=== PATIENT | male | born 1975 | race Caucasian/White ===

== ENCOUNTER 2017-08-25 09:08 | Inpatient (IN) | payer OTHER ==
[2017-08-25] MEDS: SOD CHLORIDE 0.9% 1,000 ML IV ×2 (07:00→17:52)
[~2017-08-25 09:08] MED LIST: LIDOCAINE 2% (SDV) 5 ML INJ
[2017-08-25] MEDS ORDERED: FENTAnyl 50 MCG/ML VIAL (12:20)
[2017-08-25] MEDS ORDERED: POLYMYXIN/BACITRACIN 1L IRRIG (12:28)
[2017-08-25] MEDS ORDERED: METOCLOPRAMIDE 10 MG INJ IV (12:30)
[2017-08-25] MEDS ORDERED: MIDAZOLAM 1 MG/ML 2 ML INJ IV (12:30)
[2017-08-25] MEDS ORDERED: LABETALOL HCL 20MG INJ IV (12:30)
[2017-08-25] MEDS ORDERED: DIPHENHYDRAMINE 50 MG INJ IV (12:30)
[2017-08-25] MEDS ORDERED: HYDROmorphONE (0.2 MG/ML) 10ML SYG IV ×2 (12:30)
[2017-08-25] MEDS ORDERED: FENTAnyl 50 MCG/ML VIAL IV ×2 (12:30)
[2017-08-25] MEDS ORDERED: ONDANSETRON 4 MG INJ IV (12:30)
[2017-08-25] MEDS ORDERED: EPHEDrine SULFATE 50 MG/5 ML SYG IV (12:30)
[2017-08-25] MEDS ORDERED: OXYCODONE/ACETAMINOPHEN (5/325) TAB PO ×2 (12:30)
[2017-08-25] MEDS ORDERED: ALBUTEROL 0.083% (NEB) 2.5 MG/3 ML AMP HHN (12:30)
[2017-08-25] MEDS ORDERED: MIDAZOLAM 1 MG/ML 2 ML INJ (12:35)
[2017-08-25] MEDS: CEFAZOLIN 2 GM/50 ML (PMX) 50 ML IVPB ×3 (12:40→21:48)
[2017-08-25 12:44] LABS: ADD MAN DIFF? NO
[2017-08-25] MEDS ORDERED: ROCURONIUM 50 MG INJ ×2 (12:46)
[2017-08-25] MEDS ORDERED: PROPOFOL 20 ML (12:46)
[2017-08-25] MEDS ORDERED: CEFAZOLIN 1 GM INJ (12:46)
[2017-08-25 12:47] LABS: BASOPHIL # 0.1 10^3/ul (0.0-0.1); BASOPHILS % 0.8 % (0.0-2.0); EOSINOPHILS # 0.5 10^3/ul (0.0-0.5); EOSINOPHILS % 7.5 % (0.0-7.0); HEMATOCRIT 46.8 % (42.0-52.0); LYMPHOCYTES # 2.4 10^3/ul (0.8-2.9); LYMPHOCYTES % 34.1 % (15.0-51.0); MEAN CORPUSCULAR HEMOGLOBIN 30.3 pg (29.0-33.0); MEAN CORPUSCULAR HGB CONC 34.2 g/dl (32.0-37.0); MEAN CORPUSCULAR VOLUME 88.6 fl (82.0-101.0); MEAN PLATELET VOLUME 10.9 fl (7.4-10.4); MONOCYTE # 0.5 10^3/ul (0.3-0.9); MONOCYTES % 6.8 % (0.0-11.0); NEUTROPHIL # 3.5 10^3/ul (1.6-7.5); NEUTROPHILS % 49.8 % (39.0-77.0); PLATELET COUNT 258 10^3/UL (140-415); RED BLOOD COUNT 5.28 10^6/ul (4.70-6.10)
[2017-08-25 12:47] LABS: WHITE BLOOD COUNT 7.1 10^3/ul (4.8-10.8)
[2017-08-25] MEDS ORDERED: morphine 10 MG INJ (12:47)
[2017-08-25] MEDS ORDERED: ACETAMINOPHEN 1000MG/100ML IV 100 ML (12:47)
[2017-08-25 12:53] LABS: ALANINE AMINOTRANSFERASE 32 IU/L (13-69); ALBUMIN 4.2 g/dl (3.3-4.9); ALKALINE PHOSPHATASE 65 IU/L (42-121); ANION GAP 13 (8-16); ASPARTATE AMINO TRANSFERASE 24 IU/L (15-46); BILIRUBIN,INDIRECT 0.4 mg/dl (0-1.1); BILIRUBIN,TOTAL 0.4 mg/dl (0.2-1.3); CARBON DIOXIDE 28 mmol/L (21-31); CHLORIDE 107 mmol/L (97-110); GLUCOSE 94 mg/dl (70-220); TOTAL PROTEIN 7.2 g/dl (6.1-8.1)
[2017-08-25 13:00] LABS: BLOOD UREA NITROGEN 17 mg/dl (7-20); CALCIUM 9.1 mg/dl (8.4-10.2); CREATININE 0.99 mg/dl (0.61-1.24); POTASSIUM 4.3 mmol/L (3.5-5.1); SODIUM 144 mmol/L (135-144)
[2017-08-25] MEDS: BUPIVACAINE 0.25% (MPF) 30 ML INJ (13:08)
[2017-08-25 13:09] LABS: INR 0.99; PROTIME 13.2 Sec (11.9-14.9)
[2017-08-25 13:10] LABS: PARTIAL THROMBOPLASTIN TIME 31.4 Sec (25.0-35.0)
[2017-08-25] MEDS ORDERED: NEOSTIGMINE 3 MG/3 ML SYRINGE (14:08)
[2017-08-25] MEDS ORDERED: GLYCOPYRROLATE 0.4 MG INJ (14:08)
[2017-08-25] MEDS: HYDROmorphONE (0.2 MG/ML) 10ML SYG IV ×3 (14:21→14:44)
[2017-08-25] MEDS: FENTAnyl 50 MCG/ML VIAL IV ×3 (14:21→14:55)
[2017-08-25] MEDS: KETOROLAC 30 MG INJ IV (14:22)
[2017-08-25] MEDS: morphine 2 MG INJ IV ×3 (14:36→22:19)
[2017-08-25] MEDS: MEPERIDINE 25 MG INJ IV (14:54)
[2017-08-25] MEDS: hydrALAzine 20 MG INJ IV (15:02)
[2017-08-25] MEDS ORDERED: CEPASTAT LOZENGE MT (18:00)
[2017-08-25] MEDS: KETOROLAC 15 MG INJ IV (20:58)
[2017-08-26] MEDS: morphine 2 MG INJ IV ×4 (01:13→12:21)
[2017-08-26] MEDS: SOD CHLORIDE 0.9% 1,000 ML IV ×3 (03:54→15:59)
[2017-08-26] MEDS: CEFAZOLIN 2 GM/50 ML (PMX) 50 ML IVPB ×2 (04:55→13:50)
[2017-08-26 05:49] LABS: ADD MAN DIFF? NO
[2017-08-26 05:56] LABS: WHITE BLOOD COUNT 11.2 10^3/ul (4.8-10.8)
[2017-08-26 05:56] LABS: BASOPHIL # 0.1 10^3/ul (0.0-0.1); BASOPHILS % 0.4 % (0.0-2.0); EOSINOPHILS # 0.1 10^3/ul (0.0-0.5); EOSINOPHILS % 0.9 % (0.0-7.0); HEMATOCRIT 40.7 % (42.0-52.0); HEMOGLOBIN 13.8 g/dl (14.0-18.0); LYMPHOCYTES # 1.7 10^3/ul (0.8-2.9); LYMPHOCYTES % 14.9 % (15.0-51.0); MEAN CORPUSCULAR HEMOGLOBIN 30.5 pg (29.0-33.0); MEAN CORPUSCULAR HGB CONC 33.9 g/dl (32.0-37.0); MEAN CORPUSCULAR VOLUME 89.8 fl (82.0-101.0); MEAN PLATELET VOLUME 10.7 fl (7.4-10.4); MONOCYTES % 9.1 % (0.0-11.0); NEUTROPHIL # 8.3 10^3/ul (1.6-7.5); NEUTROPHILS % 74.3 % (39.0-77.0); PLATELET COUNT 234 10^3/UL (140-415); RED BLOOD COUNT 4.53 10^6/ul (4.70-6.10); RED CELL DISTRIBUTION WIDTH 13.3 % (11.5-14.5)
[2017-08-26 06:19] LABS: ALANINE AMINOTRANSFERASE 30 IU/L (13-69); ALBUMIN 3.8 g/dl (3.3-4.9); ALBUMIN/GLOBULIN RATIO 1.35; ALKALINE PHOSPHATASE 51 IU/L (42-121); ANION GAP 13 (8-16); ASPARTATE AMINO TRANSFERASE 26 IU/L (15-46); BILIRUBIN,INDIRECT 0.6 mg/dl (0-1.1); BILIRUBIN,TOTAL 0.6 mg/dl (0.2-1.3); BLOOD UREA NITROGEN 18 mg/dl (7-20); CALCIUM 8.3 mg/dl (8.4-10.2); CARBON DIOXIDE 28 mmol/L (21-31); CHLORIDE 104 mmol/L (97-110); CREATININE 0.95 mg/dl (0.61-1.24); GLUCOSE 94 mg/dl (70-220); POTASSIUM 3.9 mmol/L (3.5-5.1); SODIUM 141 mmol/L (135-144); TOTAL PROTEIN 6.6 g/dl (6.1-8.1)
[2017-08-26] MEDS: HYDROCODONE/APAP (5/325) TAB PO (13:28)
[2017-08-26] MEDS: HYDROmorphONE 0.5 MG/0.5 ML SYG IV ×3 (15:59→23:23)
[2017-08-27] MEDS: HYDROmorphONE 0.5 MG/0.5 ML SYG IV ×6 (02:13→14:47)
[2017-08-27] MEDS: SOD CHLORIDE 0.9% 1,000 ML IV ×4 (02:13→22:49)
[2017-08-27] MEDS: MAGNESIUM HYDROXIDE 30ML CUP PO (14:48)
[2017-08-27] MEDS ORDERED: HYDROCODONE/APAP (5/325) TAB PO (17:00)
[2017-08-27] MEDS: HYDROCODONE/APAP (5/325) TAB PO ×2 (17:18→21:23)
[2017-08-28] MEDS: HYDROCODONE/APAP (5/325) TAB PO ×2 (02:32→22:29)
[2017-08-28] MEDS: HYDROmorphONE 0.5 MG/0.5 ML SYG IV ×7 (05:49→19:43)
[2017-08-28 06:04] LABS: ADD MAN DIFF? NO
[2017-08-28 06:14] LABS: BASOPHIL # 0.1 10^3/ul (0.0-0.1); BASOPHILS % 0.5 % (0.0-2.0); EOSINOPHILS # 0.5 10^3/ul (0.0-0.5); EOSINOPHILS % 4.3 % (0.0-7.0); HEMATOCRIT 36.6 % (42.0-52.0); HEMOGLOBIN 12.6 g/dl (14.0-18.0); LYMPHOCYTES # 1.5 10^3/ul (0.8-2.9); LYMPHOCYTES % 13.9 % (15.0-51.0); MEAN CORPUSCULAR HEMOGLOBIN 30.7 pg (29.0-33.0); MEAN CORPUSCULAR HGB CONC 34.4 g/dl (32.0-37.0); MEAN CORPUSCULAR VOLUME 89.1 fl (82.0-101.0); MEAN PLATELET VOLUME 10.6 fl (7.4-10.4); MONOCYTE # 1.1 10^3/ul (0.3-0.9); MONOCYTES % 10.5 % (0.0-11.0); NEUTROPHIL # 7.6 10^3/ul (1.6-7.5); NEUTROPHILS % 70.2 % (39.0-77.0); PLATELET COUNT 211 10^3/UL (140-415); RED BLOOD COUNT 4.11 10^6/ul (4.70-6.10); RED CELL DISTRIBUTION WIDTH 12.8 % (11.5-14.5)
[2017-08-28 06:14] LABS: WHITE BLOOD COUNT 10.8 10^3/ul (4.8-10.8)
[2017-08-28] MEDS: MAGNESIUM HYDROXIDE 30ML CUP PO (08:50)
[2017-08-28] MEDS: SOD CHLORIDE 0.9% 1,000 ML IV ×2 (08:51→18:59)
[2017-08-28] MEDS: BISACODYL 10 MG SUPP PR (14:49)
[2017-08-29] MEDS: SOD CHLORIDE 0.9% 1,000 ML IV ×2 (04:59→08:05)
[2017-08-29] MEDS: HYDROCODONE/APAP (5/325) TAB PO ×2 (05:04→09:09)
[2017-08-29 05:57] LABS: ADD MAN DIFF? NO
[2017-08-29 06:04] LABS: BASOPHIL # 0.1 10^3/ul (0.0-0.1); BASOPHILS % 0.6 % (0.0-2.0); EOSINOPHILS # 0.6 10^3/ul (0.0-0.5); HEMATOCRIT 37.9 % (42.0-52.0); HEMOGLOBIN 12.7 g/dl (14.0-18.0); LYMPHOCYTES # 1.8 10^3/ul (0.8-2.9); LYMPHOCYTES % 21.1 % (15.0-51.0); MEAN CORPUSCULAR HGB CONC 33.5 g/dl (32.0-37.0); MEAN CORPUSCULAR VOLUME 89.6 fl (82.0-101.0); MEAN PLATELET VOLUME 10.7 fl (7.4-10.4); MONOCYTE # 0.8 10^3/ul (0.3-0.9); MONOCYTES % 9.3 % (0.0-11.0); NEUTROPHIL # 5.1 10^3/ul (1.6-7.5); PLATELET COUNT 243 10^3/UL (140-415); RED BLOOD COUNT 4.23 10^6/ul (4.70-6.10); RED CELL DISTRIBUTION WIDTH 12.6 % (11.5-14.5)
[2017-08-29 06:04] LABS: WHITE BLOOD COUNT 8.3 10^3/ul (4.8-10.8)
[2017-08-29 07:46] LABS: ANION GAP 13 (8-16); BLOOD UREA NITROGEN 9 mg/dl (7-20); CALCIUM 8.3 mg/dl (8.4-10.2); CARBON DIOXIDE 26 mmol/L (21-31); CHLORIDE 108 mmol/L (97-110); CREATININE 0.79 mg/dl (0.61-1.24); GLUCOSE 99 mg/dl (70-220); POTASSIUM 4.3 mmol/L (3.5-5.1); SODIUM 143 mmol/L (135-144)
[2017-08-29] MEDS: MAGNESIUM HYDROXIDE 30ML CUP PO (09:02)
== END 2017-08-29 14:00 | disposition home or self-care (01) | DRG 355 ==
LOC: REC 09:08 → MS2 15:50
PROC: 0WUF0JZ Supplement Abdominal Wall with Synthetic Substitute, Open Approach (ICD-10-PCS; principal; 2017-08-25 12:32)
PROC: 0KX Muscles, Transfer (ICD-10-PCS; 2017-08-25 12:32)
PROC: 0KX Muscles, Transfer (ICD-10-PCS; 2017-08-25 12:32)
DX: K43.0 Incisional hernia with obstruction, without gangrene (principal); F17.210 Nicotine dependence, cigarettes, uncomplicated; E66.9 Obesity, unspecified; Z68.38 Body mass index [BMI] 38.0-38.9, adult
CPT/HCPCS: 80048; 80053; 85025; 85610; 85730

== ENCOUNTER 2017-09-01 13:43 | Inpatient (IN) | payer OTHER ==
[2017-09-01] MEDS ORDERED: ONDANSETRON 4 MG INJ IV (15:00)
[2017-09-01] MEDS ORDERED: NACL 0.9% 3 ML SYG IV (15:00)
[2017-09-01] MEDS: HYDROmorphONE 0.5 MG/0.5 ML SYG IV ×2 (15:44→19:50)
[2017-09-01] MEDS: SOD CHLORIDE 0.9% 1,000 ML IV (15:44)
[2017-09-01] MEDS: AMPICILLIN/SULB 3 GM/NS (PMX) 100 ML IVPB (17:26)
[2017-09-02] MEDS: HYDROmorphONE 0.5 MG/0.5 ML SYG IV ×5 (00:33→19:49)
[2017-09-02] MEDS: AMPICILLIN/SULB 3 GM/NS (PMX) 100 ML IVPB ×4 (00:34→17:50)
[2017-09-02 05:26] LABS: ADD MAN DIFF? NO
[2017-09-02 05:36] LABS: WHITE BLOOD COUNT 7.7 10^3/ul (4.8-10.8)
[2017-09-02 05:36] LABS: BASOPHIL # 0.1 10^3/ul (0.0-0.1); EOSINOPHILS # 0.7 10^3/ul (0.0-0.5); EOSINOPHILS % 9.2 % (0.0-7.0); HEMATOCRIT 40.9 % (42.0-52.0); HEMOGLOBIN 13.9 g/dl (14.0-18.0); LYMPHOCYTES # 1.9 10^3/ul (0.8-2.9); LYMPHOCYTES % 25.2 % (15.0-51.0); MEAN CORPUSCULAR HEMOGLOBIN 30.2 pg (29.0-33.0); MEAN CORPUSCULAR VOLUME 88.9 fl (82.0-101.0); MEAN PLATELET VOLUME 9.7 fl (7.4-10.4); MONOCYTE # 0.5 10^3/ul (0.3-0.9); MONOCYTES % 7.1 % (0.0-11.0); NEUTROPHIL # 4.1 10^3/ul (1.6-7.5); NEUTROPHILS % 52.9 % (39.0-77.0); PLATELET COUNT 355 10^3/UL (140-415); RED CELL DISTRIBUTION WIDTH 12.8 % (11.5-14.5)
[2017-09-02 05:49] LABS: ALANINE AMINOTRANSFERASE 30 IU/L (13-69); ALBUMIN 3.5 g/dl (3.3-4.9); ALBUMIN/GLOBULIN RATIO 1.09; ALKALINE PHOSPHATASE 67 IU/L (42-121); ANION GAP 14 (8-16); ASPARTATE AMINO TRANSFERASE 19 IU/L (15-46); BILIRUBIN,INDIRECT 0.4 mg/dl (0-1.1); BILIRUBIN,TOTAL 0.4 mg/dl (0.2-1.3); BLOOD UREA NITROGEN 13 mg/dl (7-20); CALCIUM 8.7 mg/dl (8.4-10.2); CARBON DIOXIDE 30 mmol/L (21-31); CHLORIDE 104 mmol/L (97-110); GLUCOSE 97 mg/dl (70-220); POTASSIUM 4.4 mmol/L (3.5-5.1); SODIUM 144 mmol/L (135-144); TOTAL PROTEIN 6.7 g/dl (6.1-8.1)
[2017-09-02 06:01] LABS: FREE T4 (FREE THYROXINE) 1.29 ng/dl (0.64-1.79)
[2017-09-02 07:43] LABS: HEMOGLOBIN A1C 5.3 % (0-5.9)
[2017-09-02 07:58] LABS: PHOSPHORUS 4.1 mg/dl (2.5-4.9)
[2017-09-02 07:58] LABS: CHOL/HDL RATIO 6.8 RATIO; CHOLESTEROL 172 mg/dl (100-200); HDL CHOLESTEROL 25 mg/dl (27-67); LDL CHOLESTEROL,CALCULATED 124 mg/dl; MAGNESIUM 2.3 mg/dl (1.7-2.5); TRIGLYCERIDES 115 mg/dl (0-149)
[2017-09-03] MEDS: AMPICILLIN/SULB 3 GM/NS (PMX) 100 ML IVPB ×2 (00:16→05:39)
[2017-09-03] MEDS: HYDROmorphONE 0.5 MG/0.5 ML SYG IV ×2 (02:03→07:44)
[2017-09-03 05:28] LABS: ADD MAN DIFF? NO
[2017-09-03 05:41] LABS: WHITE BLOOD COUNT 7.5 10^3/ul (4.8-10.8)
[2017-09-03 05:41] LABS: BASOPHIL # 0.1 10^3/ul (0.0-0.1); BASOPHILS % 0.8 % (0.0-2.0); EOSINOPHILS # 0.7 10^3/ul (0.0-0.5); EOSINOPHILS % 9.1 % (0.0-7.0); HEMATOCRIT 41.1 % (42.0-52.0); HEMOGLOBIN 14.1 g/dl (14.0-18.0); LYMPHOCYTES # 1.8 10^3/ul (0.8-2.9); LYMPHOCYTES % 24.6 % (15.0-51.0); MEAN CORPUSCULAR HEMOGLOBIN 30.2 pg (29.0-33.0); MEAN CORPUSCULAR HGB CONC 34.3 g/dl (32.0-37.0); MEAN PLATELET VOLUME 9.7 fl (7.4-10.4); MONOCYTE # 0.5 10^3/ul (0.3-0.9); MONOCYTES % 6.4 % (0.0-11.0); NEUTROPHILS % 54.1 % (39.0-77.0); PLATELET COUNT 361 10^3/UL (140-415); RED BLOOD COUNT 4.67 10^6/ul (4.70-6.10); RED CELL DISTRIBUTION WIDTH 12.8 % (11.5-14.5)
[2017-09-03 05:55] LABS: ANION GAP 15 (8-16); BLOOD UREA NITROGEN 14 mg/dl (7-20); CALCIUM 8.9 mg/dl (8.4-10.2); CARBON DIOXIDE 27 mmol/L (21-31); CHLORIDE 106 mmol/L (97-110); CREATININE 1.06 mg/dl (0.61-1.24); GLUCOSE 101 mg/dl (70-220); POTASSIUM 4.2 mmol/L (3.5-5.1); SODIUM 144 mmol/L (135-144)
[2017-09-03 06:00] LABS: MAGNESIUM 2.2 mg/dl (1.7-2.5)
[2017-09-03 06:00] LABS: PHOSPHORUS 4.4 mg/dl (2.5-4.9)
[2017-09-03] MEDS: HYDROCODONE/APAP (5/325) TAB PO (08:41)
== END 2017-09-03 12:00 | disposition home or self-care (01) | DRG 921 ==
LOC: PP2 13:43
DX: M96.842 Postprocedural seroma of a musculoskeletal structure following a musculoskeletal system procedure (principal); E66.9 Obesity, unspecified; Z68.37 Body mass index [BMI] 37.0-37.9, adult
CPT/HCPCS: 80048; 80053; 80061; 83036; 83735; 84100; 84439; 84443; 85025; 87081